=== PATIENT | female | born 1970 | race Caucasian/White ===

== ENCOUNTER → 2017-07-12 | Outpatient (CLI) | payer BC, OTHER ==
[~2017-07-12] MED LIST: ASCO500C43 PO; ATEN50TA8 PO; FLUT0.0529 NAE; OMEG10007 PO
== END | disposition home or self-care (01) ==
LOC: C.PAPS 12:00
PROVIDERS: ATTEND Obstetrics & Gynecology
DX: Z01.419 Encounter for gynecological examination (general) (routine) without abnormal findings (principal)

== ENCOUNTER → 2017-07-19 | Outpatient (CLI) | payer BC, OTHER ==
--- NOTE | 2017-07-19 14:20 | MAMMOGRAPHY REPORT ---
BILATERAL DIGITAL SCREENING MAMMOGRAM TOMOSYNTHESIS WITH CAD: 07/19/2017 CLINICAL HISTORY: Routine screening. Patient has no complaints. TECHNIQUE: Breast tomosynthesis in addition to standard 2D mammography was performed. Current study was also evaluated with a Computer Aided Detection (CAD) system. COMPARISON: Comparison is made to exams dated: 07/14/2016 mammogram, 07/09/2015 mammogram, 05/26/2014 [facility] m[facility], 05/20/2013 mammogram, 07/13/2011 ultrasound, and 07/13/2011 mammogram - [facility] er. BREAST COMPOSITION: There are scattered areas of fibroglandular density in both breasts. FINDINGS: No suspicious masses, calcifications, or areas of architectural distortion are noted in ei ther breast. There has been no significant interval change compared to prior exams. A few scattered bilateral benign-appearing calcifications are again noted. Circumscribed benign-appearing 13 m mass in the right central breast is again noted and likely represents a cyst, with multiple cysts seen wit hin the right breast on a prior 2010 ultrasound exam. IMPRESSION: ACR BI-RADS CATEGORY 2: BENIGN There is no mammographic evidence of malignancy. A 1 year screening mammogram is recommended. The pa tient will receive written notification of the results. Approximately 10% of breast cancers are not detected with mammography. A negative mammographic report should not delay biopsy if a clinically suggestive mass is present. Skye Jo M.D. /:07/19/2017 08:36:26 Parts Remover: Ирина King, [facility] letter sent: Normal 1/2 BI-RADS Code: ACR BI-RADS Category 2: Benign
== END | disposition home or self-care (01) ==
LOC: C.MAMM 08:09
PROVIDERS: ATTEND Obstetrics & Gynecology
DX: Z12.31 Encounter for screening mammogram for malignant neoplasm of breast (principal)